=== PATIENT | male | born 1985 | race Caucasian/White ===

== ENCOUNTER 2018-08-18 10:38 | Emergency (ER) | payer OTHER, MEDICAID ==
[2018-08-18] MEDS: CODE BLUE RESUSCITATION 1 EA MISC ONE ×2 (10:38→12:43)
--- NOTE | 2018-08-18 10:50 | EDPHY ---
HPI/HX/ROS/PE/MDM Narrative: CHIEF COMPLAINT: Unconscious HPI: The patient is a 33 y/o male arriving emergently via EMS as a cardiac arrest and possible overdose. Per EMS, the patient's friend called EMS for a drug overdose and then left. At 09:49 [place] [employer] and EMS found the patient on the scene pulseless and apneic in a hotel room. EMS performed 30 minutes of CPR and then called the emergency department to pronounce him. After I pronounced him via phone, the patient regained pulses and was transported emergently to this emergency department. He received 5 rounds of epinephrine and 2 rounds of Narcan without change in status. His last round of epinephrine was at 10:37. The patient also has a Eliot's Airway and bilateral tibial IO's in place. Upon arrival he was in a coarse V-Fib. REVIEW OF SYSTEMS: Unable to obtain secondary to patient's mental status. PMH: Unknown SOCIAL HISTORY: Lives in [place], employed at [employer] PHYSICAL EXAM: General: Patient is unconscious, unresponsive ENT: Pupils are fixed and dilated bilaterally. ENT inspection normal. Eliot Airway in place with black emesis present. Neck: Normal inspection. Respiratory: Breath sounds present bilaterally with bagging. Cardiovascular: Asystole. Weak peripheral pulses. Skin: Pallor. No rash. Cool and dry. Neuro: Oriented x 0. Unresponsive. ED Course: 1038: I met EMS upon arrival. They were not performing CPR while moving him into the room. CPR resumed immediately when he entered trauma room 2. 1041: Narcan administered and patient shocked with 100 joules. Procedure: Electrical Cardioversion. Indication: Dysrhythmia. The patient was on a continuous library monitor, with airway equipment at the bedside. The patient was on continuous pulse oximetry and passive CO2 monitor. The cardioversion was performed with 100 joules biphasic current. The cardioversion was successful. The patient tolerated the procedure well with no complications. The procedure was performed by myself, Dr. Vaughn. 1042: Epi administered. 1043: CPR stopped. Patient is in asystole. CPR resumed. 1047: Patient is in junctional with a pulse of 77; CPR stopped. Bicarbonate administered. Procedure: Limited transthoracic echocardiogram. A limited transthoracic echocardiogram was performed and interpreted by myself for cardiac arrest. Limited transthoracic echocardiogram: The pericardium was visualized and found to be negative for pericardial fluid. Cardiac activity was present . The study was negative for pericardial effusion. The study demonstrated presence of cardiac activity. The procedure was interpreted and performed by myself, Dr. Vaughn. 1052: Patient's end-tidal and heart rate are dropping again. CPR resumed. Echo has been paged and will perform and echo in the emergency department. 1056: Dr. Cardona, veneer gluer, and Amado, gas plant technician, are in the room. 1058: Patient has regained pulses. Per the echo his RV is dilated and hypo which is flattening the septum. Patient has an elevated troponin. Echo is severely dilated so we will give a lytic dose of tPA. The patient does have some brown fluid in his oropharynx which may be stigmata of GI bleed, but at this point I think possible lysis of potential saddle PE is the patient's only chance of resuscitation, despite risks. 1101: TPA will be prepared and mixed. 1104: Patient's RV is getting bigger. HR: 97, BP: 57/31, and O2Sats: 100% 1106: Patient has lost pulses; CPR resumed. TPA administered. 1107: Epi administered. 1113: Patient's right ventricle has now decreased in size and patient has resumed pulses. 1115: NG tube placed; there was blood present in the NG tube. 1120: Procedure: Rapid sequence intubation. Indication for the procedure was airway protection. The patient was preoxygenated with 100% oxygen by Eliot Airway. The patient was orally endotracheally intubated under direct visualization with a 7.5 ETT. Tracheal intubation was confirmed with misting on the tube; breath sounds were auscultated equally bilaterally; appropriate color change with [place] End Tidal CO2 detector.Chest X-ray shows ETT in good position. The procedure was performed by myself, Dr. Vaughn. 1121: CPR resumed. Patient is back in PEA. Epi administered. 1123: CPR stopped to check for pulses. Patient has femoral pulses. Bicarbonate and 2 of Narcan administered. 1129: Patient's pressures dropped to 77/46; IV NS pressure bags increased. 1133: D50 administered. 1136: X-ray at bedside to do chest x-ray. 1137: Patient lost pulses, CPR resumed. 1138: Epi administered. 1145: Patient's end-tidal is decreasing and he is having more agonal breaths. The Epi is wearing off. 1151: Patient is intermittently losing pulses. At this point, I think further resuscitation is futile - Dr. Cardona from Cardiology and I are in agreement. 1157: Patient's end-tidal is 15 and his right ventricle has enlarged again per the echo. 1200: Patient has been moved to emergency room 15. 1204: Patient is in asystole and pulseless. Time of called by myself. [facility] has been informed and will perform an investigation. Critical care time spent by me, Dr. Vaughn, exclusively with this patient was 90 minutes, exclusive of PA time and exclusive of procedures. The organ system at risk was cardiovascular and I gave IVF, Narcan, Epinephrine, Bicarbonate, D50 , had a bedside echo performed, intubated, and cardioverted to prevent worsening of the patients condition. MDM: This patient presents in cardiac arrest. Only history from EMS is possible overdose. We performed an extensive resuscitation in the ED but ultimately efforts were futile. - Data Points Imaging Results: Imaging Impressions Chest X-Ray 08/18/18 11:23 Impression: 1. Support devices in good position. 2. Early bronchopneumonia, viral pneumonitis, or noncardiogenic interstitial edema. Imaging: I viewed and interpreted images myself Laboratory Results: 08/18/18 08/18/18 08/18/18 11:10 11:05 10:58 POC Hgb 14.3 gm/dL gm/dL (13.7-17.5) POC Hct 42 % % (40-51) POC Sodium 145 mEq/L mEq/L (135-145) POC Potassium 5.6 mEq/L H mEq/L (3.3-5.0) POC Chloride 107 mEq/L mEq/L (97-110) POC BUN 31 mg/dL H mg/dL (7-23) POC Creatinine 2.2 mg/dL H mg/dL (0.7-1.3) POC Glucose 45 mg/dL L mg/dL (70-100) POC Troponin I 0.30 ng/mL H ng/mL (0.00-0.08) Urine Opiates Screen NEGATIVE (NEGATIVE) Urine Barbiturates NEGATIVE (NEGATIVE) Ur Phencyclidine Scrn NEGATIVE (NEGATIVE) Ur Amphetamine Screen NEGATIVE (NEGATIVE) U Benzodiazepines Scrn NEGATIVE (NEGATIVE) Urine Cocaine Screen NEGATIVE (NEGATIVE) U Marijuana (THC) Screen NEGATIVE (NEGATIVE) Medications Given: Discontinued Medications Miscellaneous Medication (Code Blue Resuscitation) 1 ea MISC EDNOW ONE Stop: 08/18/18 12:40 Last Admin: 08/18/18 12:43 Dose: 1 ea Point of Care Test Results: Chemistry 08/18/18 08/18/18 11:05 10:58 POC Sodium 145 mEq/L mEq/L (135-145) POC Potassium 5.6 mEq/L H mEq/L (3.3-5.0) POC Chloride 107 mEq/L mEq/L (97-110) POC BUN 31 mg/dL H mg/dL (7-23) POC Creatinine 2.2 mg/dL H mg/dL (0.7-1.3) POC Glucose 45 mg/dL L mg/dL (70-100) POC Troponin I 0.30 ng/mL H ng/mL (0.00-0.08) ISTAT H&H 08/18/18 11:05 POC Hgb 14.3 gm/dL gm/dL (13.7-17.5) POC Hct 42 % % (40-51) General Time Seen by Provider: 08/18/18 10:49 Initial Vital Signs: Initial Vital Signs Heart Rate 0 L 08/18/18 10:38 Respiratory Rate 0 L 08/18/18 10:38 Allergies/Adverse Reactions: acetaminophen Allergy (Severe, Verified 03/22/18 14:14) Swelling/neck,face,throat ibuprofen Allergy (Severe, Verified 03/22/18 14:14) Swelling/neck,face,throat Home Medications: Medication Instructions Recorded Cephalexin [Keflex] 500 mg PO QID #40 cap 03/22/18 PARoxetine HCL [Paxil 20mg (*)] 20 mg PO 03/22/18 Sulfamethox/Tmp 800/160 mg 1 tab PO BID@1000,2200 #20 tab 03/22/18 [Bactrim Ds] diphenhydrAMINE [Benadryl 25 MG 25 mg PO 03/22/18 (*)] Departure - Departure Disposition: Clinical Impression: Cardiac arrest Condition: Critical Report Scribed for: Royce Vaughn Report Scribed by: Jenni Soto Date of Report: 01/01/19 Time of Report: 10:50 Physician Review and Approval Statement: Portions of this note were transcribed by an ED scribe. I personally performed the history, physical exam, and medical decision making; and confirm the accuracy of the information in the transcribed note.
[2018-08-18] MEDS ORDERED: ALTEPLASE 100 MG/100 ML VIAL IV ONE (11:01)
[2018-08-18] MEDS ORDERED: EPINEPHrine 1 MG/10 ML SYR IVP ONE ×3 (11:14→13:59)
[2018-08-18] MEDS ORDERED: ATROPINE SULFATE 1 MG/10 ML SYR ONE (13:59)
[2018-08-18] MEDS ORDERED: SODIUM BICARBONATE 50 MEQ/50 ML SYR ONE (13:59)
[2018-08-18] MEDS ORDERED: NALOXONE HCL 2 MG/2 ML SYR IVP ONE (13:59)
[2018-08-18] MEDS ORDERED: D50W 25 GM/50 ML SYR IVP ONE (13:59)
--- NOTE | 2018-08-18 15:33 | ASMTCMCOM ---
CM Note CM Note Notes: Pt was transported to the Emergency Department via EMS after being found unconscious in a hotel room at the [facility] on [address] [place]. Per Joanne CRAIG, a call was received from a "friend" of the pt reporting an overdose. Joanne CRAIG stated "no wallet, ID, phone or friends were present at the hotel upon EMS/PD arrival." CPR and resuscitation efforts were performed by Emergency Department staff. LEYDI unable to notify pt's primary emergency contact secondary to pending police investigation. Joanne CRAIG to update pt's family. CM available for any further issues or concerns. Date Signed: 08/18/2018 03:32 PM Electronically Signed By:Aarti Caballero RN
--- NOTE | 2018-08-20 09:15 | ECHO ---
[email or web address] [address] Main: [phone] Fax: Transthoracic Echocardiogram Name: LILIBETH CARBALLO MR#: [id number] Study Date: 08/18/2018 Study Time: 10:58 AM Date of : 1985 Age: 33 year(s) Height: ( ) Weight: ( ) BSA: Gender: Male Examination: Indication: Code Blue Image Quality: Contrast: Requested by: Rosibel Hatch BP: / Heart Rate: Rhythm: Indication: Code Blue Procedure Staff Pouncer: Amado Lucas RDCS Reading Physician: Guero Cardona MD Requesting Provider: Conclusions: This is a STAT echocardiogram to evaluate LV and RV function on this patient found down. There is a hyperdynamic LV due to epinepherine injection and a severely hypokinetic RV that is severly dilated. The patient at the end of the exam. . Measurements: Chambers Valvular Assessment AV/MV Valvular Assessment TV/PV Normal Normal Normal Name Value Range Name Value Range Name Value Range TR Vmax: 2.69 mm/s ( - ) TR PGmax: 29 mmHg ( - ) syst. PAP: 34 mmHg ( - ) Continued Measurements: Valvular Assessment TV/PV Name Value CVP (est.): 5 mmHg Findings: Exam Comments: This is a STAT echocardiogram to evaluate LV and RV function on this patient found down. There is a hyperdynamic LV due to epinepherine injection and a severely hypokinetic RV that is severly dilated. The patient at the end of the exam. . Patient: LILIBETH CARBALLO Study Date: 08/18/2018 Page 1 of 2 10:58 AM (No Signature Object) Patient: LILIBETH CARBALLO Study Date: 08/18/2018 Page 2 of 2 10:58 AM [id number]
== END 2018-08-18 13:29 | disposition expired ==
LOC: EDUNIT# → UNDOADMIN 11:54
DX: I46.9 Cardiac arrest, cause unspecified (principal)
CPT/HCPCS: 80305; 82435-PO; 82565-PO; 82947-PO; 84132-PO; 84295-PO; 84484-ER; 84520-PO; 85014-ER; J0461; J2310; J2997